=== PATIENT | female | born 1950 | race Native Hawaiian/Other Pacific Islander ===

== ENCOUNTER 2016-09-07 08:13 | Day surgery (SDC) | payer OTHER ==
[~2016-09-07] VITALS: Ht 30.5 cm; Wt 0.5 kg
== END 2016-09-07 10:50 | disposition home or self-care (01) ==
LOC: OR 08:13
PROC: 0JBP0ZZ Excision of Left Lower Leg Subcutaneous Tissue and Fascia, Open Approach (ICD-10-PCS; principal; 2016-09-07)
DX: I83.028 Varicose veins of left lower extremity with ulcer other part of lower leg (principal); L97.821 Non-pressure chronic ulcer of other part of left lower leg limited to breakdown of skin
CPT/HCPCS: J2250; J2704; J3010